=== PATIENT | female | born 1975 | race Caucasian/White ===

== ENCOUNTER → 2017-01-07 | Outpatient (CLI) | payer BC | END | disposition home or self-care (01) | LOC: LAB 00:07 | PROVIDERS: Specialist | DX: J30.9 Allergic rhinitis, unspecified (principal) ==

== ENCOUNTER 2020-07-25 08:29 | Emergency (ER) | payer OTHER | END 2020-07-25 11:51 | disposition home or self-care (01) | LOC: ED 08:29 | DX: U07.1 COVID-19 (principal) ==

== ENCOUNTER → 2021-09-20 | Outpatient (CLI) | payer OTHER ==
[2021-09-22 08:08] LABS: FOLLICLE STIMULATING HORMONE 7.9 mIU/mL (.)
== END | disposition home or self-care (01) ==
LOC: LAB 22:01
PROVIDERS: ATTEND Nurse Practitioner Women's Health
DX: R63.5 Abnormal weight gain (principal)

== ENCOUNTER 2021-10-29 04:36 | Emergency (ER) | payer OTHER ==
[2021-10-29] MEDS ORDERED: AVPAK AZITHROM250 M1 PO (05:16)
== END 2021-10-29 05:40 | disposition home or self-care (01) ==
LOC: ED 04:36
DX: H66.92 Otitis media, unspecified, left ear (principal); J02.9 Acute pharyngitis, unspecified

== ENCOUNTER 2023-03-01 23:55 | Emergency (ER) | payer OTHER ==
[~2023-03-01] VITALS: Ht 162.5 cm; Wt 68.0 kg
[~2023-03-01 23:55] MED LIST: AVPAK AZITHROM250 M1 PO
[2023-03-02] MEDS ORDERED: PENICILLIN VK500 MG PO (00:11)
== END 2023-03-02 00:27 | disposition home or self-care (01) ==
LOC: ED 23:55
DX: J02.9 Acute pharyngitis, unspecified (principal); Z20.822 Contact with and (suspected) exposure to COVID-19

== ENCOUNTER → 2023-04-11 | Outpatient (CLI) | payer OTHER ==
[~2023-04-11] MED LIST changes: +PENICILLIN VK500 MG PO
[2023-04-11 00:17] LABS: BASO # 0.1 10*3/uL (0.0-0.1); BASO % 0.8 % (0.0-1.0); EOS # 0.1 10*3/uL (0.0-0.4); EOS % 1.8 % (1.0-4.0); HEMATOCRIT 44.5 % (37.0-47.0); LYMPH # 2.1 10*3/uL (1.3-4.4); LYMPH % 26.4 % (27.0-41.0); MEAN CELL VOLUME 92.5 fl (81.0-99.0); MEAN CORPUSCULAR HGB 31.2 pg (27.0-31.0); MEAN CORPUSCULAR HGB CONC 33.7 g/dl (33.0-37.0); MEAN PLATELET VOLUME 9.2 fl (9.6-12.3); MONO # 0.5 10*3/uL (0.1-1.0); MONO % 5.7 % (3.0-9.0); NEUT # 5.1 10*3/uL (2.3-7.9); NEUT % 64.9 % (47.0-73.0); PLATELET COUNT AUTOMATED 259 10*3/uL (130-400); RED BLOOD COUNT 4.81 10*6/uL (4.10-5.10); RED CELL DISTRI WIDTH 13.4 % (0-14.5); WHITE BLOOD COUNT 7.8 10*3/uL (4.8-10.8)
[2023-04-11 00:50] LABS: ALKALINE PHOSPHATASE 68 U/L (46-116); BUN 11 mg/dl (9-23); CHLORIDE 107 mmol/L (98-107); CHOLESTEROL 199 mg/dL (<200); LDL CHOLESTEROL 109 mg/dL (9-159); POTASSIUM 3.6 mmol/L (3.4-5.1); SGPT/ALT 23 U/L (10-49); TOTAL PROTEIN 7.1 gm/dL (6.0-8.0); TRIGLYCERIDES 72 mg/dl (<150)
[2023-04-14 16:07] LABS: ANTI-DSDNA ANTIBODIES 1 IU/mL (0-9); ANTI-RNP ANTIBODIES <0.2 AI (0.0-0.9); ANTICHROMATIN ANTIBODIES <0.2 AI (0.0-0.9); ANTISCLERODERMA-70 AB <0.2 AI (0.0-0.9); SJOGREN ANTI-SS-A <0.2 AI (0.0-0.9); SJOREN AB, ANTI-SS-B <0.2 AI (0.0-0.9)
== END | disposition home or self-care (01) ==
LOC: LAB 04-10 23:44
PROVIDERS: ATTEND Nurse Practitioner Family
DX: L40.9 Psoriasis, unspecified (principal); Z82.49 Family history of ischemic heart disease and other diseases of the circulatory system; Z83.3 Family history of diabetes mellitus

== ENCOUNTER → 2023-04-15 | Outpatient (CLI) | payer OTHER | END | disposition home or self-care (01) | LOC: CT 01:22 | PROVIDERS: ATTEND Nurse Practitioner Family | DX: L40.9 Psoriasis, unspecified (principal); Z82.49 Family history of ischemic heart disease and other diseases of the circulatory system; Z83.3 Family history of diabetes mellitus ==

== ENCOUNTER → 2023-04-18 | Outpatient (CLI) | payer OTHER | END | disposition home or self-care (01) | LOC: CT 00:10 | PROVIDERS: ATTEND Nurse Practitioner Family | DX: K76.0 Fatty (change of) liver, not elsewhere classified (principal); L40.9 Psoriasis, unspecified; Z83.3 Family history of diabetes mellitus; Z82.49 Family history of ischemic heart disease and other diseases of the circulatory system ==

== ENCOUNTER 2023-11-08 21:06 | Emergency (ER) | payer OTHER ==
[~2023-11-08] VITALS: Ht 170.1 cm; Wt 81.6 kg
[2023-11-08] MEDS ORDERED: Dexamethasone/Tobramycin OPHTHALMIC 2.5 ML BOTTLE OPH ONE (21:10)
[2023-11-08] MEDS ORDERED: Tetracaine Hydrochloride 0.5% 4 ML BOT OPH ONE (21:10)
[2023-11-08] MEDS ORDERED: FLUORESCEIN SODIUM 1 MG STRIP OPH ONE (21:10)
== END 2023-11-08 21:32 | disposition home or self-care (01) ==
LOC: ED 21:06
DX: S05.02XA Injury of conjunctiva and corneal abrasion without foreign body, left eye, initial encounter (principal); W54.0XXA Bitten by dog, initial encounter; Y93.89 Activity, other specified; Y92.009 Unspecified place in unspecified non-institutional (private) residence as the place of occurrence of the external cause; Y99.8 Other external cause status